=== PATIENT | male | born 1980 | race African-American/Black ===

== ENCOUNTER 2016-12-01 22:59 | Emergency (ER) | payer SELFPAY ==
[2016-12-02 00:12] LABS: microscopic required? NO
[2016-12-02 00:27] LABS: CALCIUM 8.9 mg/dL (8.5-10.1); CARBON DIOXIDE 31.1 mmol/L (21-32); CHLORIDE SERUM 103 mmol/L (98-107); CREATININE SERUM 1.1 mg/dL (0.7-1.3); GFR1 > 60 mL/min; GLUCOSE SERUM 89 mg/dL (74-106); POTASSIUM SERUM 3.4 mmol/L (3.5-5.1); SODIUM SERUM 141 mmol/L (136-145)
[2016-12-02 00:30] LABS: UA SPECIFIC GRAVITY 1.015 (1.005-1.035); urine erythrocyte NEGATIVE (NEGATIVE)
[2016-12-02 00:32] LABS: ALBUMIN 4.1 g/dL (3.4-5.0); ALKALINE PHOSPHATASE 72 U/L (46-116); ALT/SGPT 41 U/L (16-63); AMYLASE 89 U/L (25-115); AST/SGOT 32 U/L (15-37); BILIRUBIN TOTAL 0.3 mg/dL (0.20-1.00); LIPASE 121 IU/L (73-393)
[2016-12-02 00:33] LABS: TOTAL PROTEIN, SERUM 8.4 g/dL (6.4-8.2)
[2016-12-02 00:35] LABS: BASOPHIL % 0.6 % (0-2); PLATELET COUNT 247 x10^3mcL (130-400)
[2016-12-02 00:36] LABS: RED CELL DISTRIBUTION WIDTH 15.4 % (11.5-14.5)
[2016-12-02 01:51] VITALS: BP 154/97
== END 2016-12-02 01:51 | disposition home or self-care (01) ==
LOC: ED 22:59
PROVIDERS: Emergency Medicine
DX: R10.13 Epigastric pain (principal); R10.12 Left upper quadrant pain
CPT/HCPCS: 36415; 83880

== ENCOUNTER 2017-01-31 12:15 | Emergency (ER) | payer SELFPAY ==
[~2017-01-31] VITALS: Ht 177.8 cm; Wt 102.0 kg
[2017-01-31 15:39] VITALS: BP 125/72
== END 2017-01-31 15:39 | disposition home or self-care (01) ==
LOC: ED 12:15
DX: M54.5 Low back pain (principal); F17.210 Nicotine dependence, cigarettes, uncomplicated
CPT/HCPCS: J1885